=== PATIENT | male | born 1945 | race Caucasian/White ===

== ENCOUNTER 2021-04-30 21:27 | Inpatient (IN) | payer MEDICARE ==
[2021-04-30] MEDS ORDERED: Acetaminophen 650 MG Suppository PR PRN (22:02)
[2021-04-30] MEDS ORDERED: Ondansetron PF 4 MG/2 ML Vial IVP PRN (22:02)
[2021-04-30] MEDS ORDERED: Acetaminophen 325 MG TAB PO PRN (22:02)
[2021-04-30] MEDS ORDERED: Ondansetron ODT 4 MG TAB PO PRN (22:02)
[2021-04-30 22:26] VITALS: BMI 28.9
[2021-05-01] MEDS: Sodium Chloride 0.9% 1,000 ML IV SCH ×2 (00:02→08:06)
[2021-05-01 04:32] LABS: Reticulocyte Count 6.2 % (0.5-1.5)
[2021-05-01 04:39] LABS: Iron 54 ug/dL (65-175); Iron Binding Capacity, Total 215 mcg/dL (261-462)
[2021-05-01 04:40] LABS: Anion Gap 13 mmol/L (10-20); BUN (Urea Nitrogen) 18 mg/dL (8.4-25.7); Calc. Creatinine Clearance 61 mL/min (70-130); Calcium 8.2 mg/dL (7.8-10.44); Carbon Dioxide 20 mmol/L (23-31); Chloride 108 mmol/L (98-107); Glucose 98 mg/dL (83-110); Iron 53 ug/dL (65-175); Iron Binding Capacity, Total 220 mcg/dL (261-462); Potassium 3.8 mmol/L (3.5-5.1); Sodium 137 mmol/L (136-145)
[2021-05-01 04:59] LABS: Ferritin 1148.58 ng/mL (22-322)
[2021-05-01 05:00] LABS: Hep C IgG Ab Non-Reactive (NonReactive); Hep C Index 0.12 S/CO (0-0.79)
[2021-05-01 05:19] LABS: Anisocytosis MODERATE=16-30 cells (100X) (0-5/hpf); Hemoglobin 6.6 g/dL (14.0-18.0); Lymphocytes 86 % (21-51); MDiff Complete? YES; Mean Corpuscular HGB CONC 31.2 g/dL (32.0-36.0); Mean Corpuscular Hemoglobin 28.4 pg (27.0-31.0); Mean Platelet Volume 7.6 fL (7.4-10.4); Monocytes 9 % (0-10); Myelocyte 2 % (0-0); Nucleated RBC 12 % (0); Platelet Count 32 thou/uL (130-400); Platelet Morphology Comment Appears Decreased; RBC Distribution Width 16.6 % (11.5-14.5); Reactive Lymphocytes 3 % (0-10); Red Blood Cell (RBC) Count 2.31 mill/uL (4.70-6.10); White Blood Cell (WBC) Count 6.5 thou/uL (4.8-10.8)
[2021-05-01] MEDS: Cefepime 2 GM in Sodium Chloride 0.9% 100 ML IVPB SCH ×2 (06:10→18:12)
[2021-05-01] MEDS ORDERED: Vancomycin 1.5 GRAM/300 ML BAG 1.5 GM in Premix Bag 1 BAG IVPB SCH (08:00)
[2021-05-01 08:18] LABS: HBCM Index 0.09 S/CO (0-0.79); HBSAg Index 0.28 S/CO (0-0.99); HIV (1/2) Antibody/Antigen Non-Reactive (NonReactive); HIV 1/2 INDEX 0.09 S/CO (<1.00); Hep A IgM AB Non-Reactive (NonReactive); Hep A IgM S/CO 0.08 S/CO (0-0.79); Hep B Surf Ag Non-Reactive S/CO (NonReactive); Hep C IgG Ab Non-Reactive (NonReactive); Hep C Index 0.12 S/CO (0-0.79); Hepatitis B Core IgM Abs Non-Reactive (NonReactive)
[2021-05-01 08:45] LABS: ALT (SGPT) 28 U/L (8-55); AST (SGOT) 27 U/L (5-34); Albumin 3.9 g/dL (3.4-4.8); Alkaline Phosphatase 52 U/L (40-110); Anion Gap 13 mmol/L (10-20); BUN (Urea Nitrogen) 17 mg/dL (8.4-25.7); Bilirubin, Total 0.7 mg/dL (0.2-1.2); CRP (Inflammatory) 6.55 mg/dL (= or < 0.5); Calc. Creatinine Clearance 64 mL/min (70-130); Calcium 8.4 mg/dL (7.8-10.44); Carbon Dioxide 20 mmol/L (23-31); Chloride 110 mmol/L (98-107); Glucose 101 mg/dL (83-110); Potassium 3.9 mmol/L (3.5-5.1); Protein, Total 6.9 g/dL (5.8-8.1); Sodium 139 mmol/L (136-145)
[2021-05-01] MEDS ORDERED: HYDROcodone/Acetaminophen 5/325 mg Tablet PO PRN (11:17)
[2021-05-01] MEDS ORDERED: Morphine 4 MG/ML VIAL SLOW IVP PRN (12:19)
[2021-05-01 14:17] LABS: SARS-CoV-2 PCR by NAA Not Detected (NotDetected)
[2021-05-01] MEDS ORDERED: Famotidine 20 MG TAB PO PRN (18:16)
[2021-05-02] MEDS: Cefepime 2 GM in Sodium Chloride 0.9% 100 ML IVPB SCH ×2 (05:38→17:35)
[2021-05-02 08:58] LABS: Anion Gap 13 mmol/L (10-20); BUN (Urea Nitrogen) 15 mg/dL (8.4-25.7); Calc. Creatinine Clearance 70 mL/min (70-130); Calcium 8.2 mg/dL (7.8-10.44); Carbon Dioxide 19 mmol/L (23-31); Chloride 109 mmol/L (98-107); Glucose 99 mg/dL (83-110); Potassium 3.9 mmol/L (3.5-5.1); Sodium 137 mmol/L (136-145)
[2021-05-02 09:07] LABS: Platelet Count 18 thou/uL (130-400)
[2021-05-02 10:09] LABS: Bite Cells SLIGHT = 2-5 cells (100X) (0-1/hpf); Blast 22 % (0-0); Hemoglobin 7.6 g/dL (14.0-18.0); Hypochromia SLIGHT = 6-15 cells (100X) (0-5/hpf); Lymphocytes 47 % (21-51); MDiff Complete? YES; Mean Corpuscular HGB CONC 31.9 g/dL (32.0-36.0); Mean Corpuscular Volume 90.9 fL (78.0-98.0); Mean Platelet Volume 8.1 fL (7.4-10.4); Metamyelocyte 1 % (0-0); Monocytes 20 % (0-10); Myelocyte 5 % (0-0); Nucleated RBC 13 % (0); Platelet Morphology Comment Appears Decreased; Polychromasia SLIGHT = 2-3 cells (100X) (0-2/hpf); Promyelocytes 1 % (0-0); RBC Distribution Width 15.9 % (11.5-14.5); Reactive Lymphocytes 4 % (0-10); Red Blood Cell (RBC) Count 2.61 mill/uL (4.70-6.10); White Blood Cell (WBC) Count 5.3 thou/uL (4.8-10.8)
[2021-05-02] MEDS ORDERED: Bupivacaine PF 0.5% 30 ML VIAL ONE (13:29)
[2021-05-02] MEDS ORDERED: Betamet Acet/Betamet Na Ph 30 MG/5 ML VIAL ONE (13:29)
[2021-05-02] MEDS ORDERED: Bacitracin Zinc Ointment 30 gm TUBE ONE ×2 (13:30)
[2021-05-02] MEDS ORDERED: Neomycin-Polymyxin 1 ML AMP ONE (13:30)
[2021-05-02] MEDS ORDERED: Fentanyl 100 MCG/2 ML VIAL ONE (13:34)
[2021-05-02] MEDS ORDERED: Lidocaine 1% PF 5 ML VIAL ONE (14:05)
[2021-05-02] MEDS ORDERED: Ondansetron PF 4 MG/2 ML Vial ONE (14:05)
[2021-05-02] MEDS ORDERED: PROPOFOL 200 MG/20 ML VIAL ONE (14:05)
[2021-05-02 18:10] LABS: Band 2 % (5-11); Differential Comment Blast-Like Cell(s); Hemoglobin 7.4 g/dL (14.0-18.0); Lymphocytes 60 % (21-51); MDiff Complete? YES; Mean Corpuscular HGB CONC 30.8 g/dL (32.0-36.0); Mean Corpuscular Hemoglobin 29.1 pg (27.0-31.0); Mean Corpuscular Volume 94.6 fL (78.0-98.0); Mean Platelet Volume 7.9 fL (7.4-10.4); Monocytes 16 % (0-10); Myelocyte 3 % (0-0); Neutrophil 2 % (42-75); Nucleated RBC 14 % (0); Platelet Count 55 thou/uL (130-400); Platelet Morphology Comment Appears Decreased; Polychromasia SLIGHT = 2-3 cells (100X) (0-2/hpf); RBC Distribution Width 15.9 % (11.5-14.5); Reactive Lymphocytes 3 % (0-10); Red Blood Cell (RBC) Count 2.53 mill/uL (4.70-6.10); Reflex for Review?? NO; White Blood Cell (WBC) Count 4.2 thou/uL (4.8-10.8)
[2021-05-02 19:13] VITALS: BP 146/68; TEMP 98.9
== END 2021-05-02 20:25 | disposition short-term general hospital (02) | DRG 853 ==
LOC: T4-B 21:30
PROVIDERS: ADMIT Student in an Organized Health Care Education/Training Program; ATTEND Family Medicine
PROC: 6A551Z2 Pheresis of Platelets, Multiple (ICD-10-PCS; 2021-05-01)
PROC: 30233N1 Transfusion of Nonautologous Red Blood Cells into Peripheral Vein, Percutaneous Approach (ICD-10-PCS; 2021-05-01)
PROC: 0LB70ZZ Excision of Right Hand Tendon, Open Approach (ICD-10-PCS; principal; 2021-05-02)
PROC: 0HCFXZZ Extirpation of Matter from Right Hand Skin, External Approach (ICD-10-PCS; 2021-05-02)
PROC: 0HDFXZZ Extraction of Right Hand Skin, External Approach (ICD-10-PCS; 2021-05-02)
DX: A41.9 Sepsis, unspecified organism (principal); J96.00 Acute respiratory failure, unspecified whether with hypoxia or hypercapnia; N17.9 Acute kidney failure, unspecified; C92.40 Acute promyelocytic leukemia, not having achieved remission; S60.031A Contusion of right middle finger without damage to nail, initial encounter; M65.841 Other synovitis and tenosynovitis, right hand; Z20.822 Contact with and (suspected) exposure to COVID-19; D69.6 Thrombocytopenia, unspecified; E78.5 Hyperlipidemia, unspecified; R65.20 Severe sepsis without septic shock; L08.89 Other specified local infections of the skin and subcutaneous tissue; M19.90 Unspecified osteoarthritis, unspecified site; D75.89 Other specified diseases of blood and blood-forming organs; Z79.899 Other long term (current) drug therapy
CPT/HCPCS: 36415; 36430; 80048; 80074; 82274; 82607; 82728; 82746; 83540; 83550; 83615; 84550; 85025; 85046; 85060; 85384; 85652; 86140; 86803; 86850; 86900; 86901; 87070; 87102; 87116; 87205; 87206; 87389; 88184; J0692; J0702; J2405; J2704; J3010; J3370; J3490; J7050; P9016; P9035; S0020; U0003; U0005